=== PATIENT | male | born 1970 | race Caucasian/White ===

== ENCOUNTER → 2016-06-25 | Outpatient (CLI) | payer OTHER | LOC: FIMAGING 15:47 | PROVIDERS: ATTEND Family Medicine | DX: R07.81 Pleurodynia (principal) ==

== ENCOUNTER → 2017-10-09 | Outpatient (CLI) | payer OTHER | LOC: FIMAGING 12:15 | PROVIDERS: ATTEND Family Medicine | DX: R07.81 Pleurodynia (principal); Q67.6 Pectus excavatum; M41.24 Other idiopathic scoliosis, thoracic region; M51.84 Other intervertebral disc disorders, thoracic region ==